=== PATIENT | female | born 1975 | race African-American/Black ===

== ENCOUNTER 2018-09-21 07:23 | Emergency (ER) | payer MEDICAID ==
[~2018-09-21] VITALS: Ht 168.9 cm; Wt 105.2 kg
[2018-09-21 07:30] VITALS: BP 144/91
[2018-09-21] MEDS ORDERED: AMLODIPINE BESY10 MG ORAL (07:32)
[2018-09-21] MEDS ORDERED: BENAZEPRIL HCL10 MG ORAL (07:32)
[2018-09-21] MEDS ORDERED: Augmentin 875mg Tab ONE (07:42)
[2018-09-21] MEDS ORDERED: AUGMENTIN 875-1 EAC1 ORAL (07:43)
[2018-09-21] MEDS ORDERED: TYLENOL EXTRA500 MG ORAL (07:43)
[2018-09-21] MEDS ORDERED: Augmentin 875mg Tab ORAL ONE (07:45)
[2018-09-21 07:47] VITALS: BP 144/91
--- NOTE | 2018-09-21 09:13 | Emergency Room Report ---
History of Present Illness General Chief Complaint: General Complaint Source: Patient Present Illness HPI 42-year-old female presents ED for evaluation. Patient complaining of swelling to the right side of face. Started this morning. Pain is throbbing, 5 out of 10, nonradiating. Denies fevers or chills. Denies any discharge. Denies any sore throat. Denies neck stiffness. States that she's had dental work performed in that area few months ago but none recently. No other aggravating relieving factors. Denies any other associated symptoms Allergies: Coded Allergies: No Known Allergies (Unverified , 09/21/18) Patient History Past Medical History: HTN Past Surgical History: none Pertinent Family History: none Social History: Denies: smoking, alcohol use, drug use Last Menstrual Period: 08/19/18 Now: No Immunizations: UTD Reviewed Nursing Documentation: PMH: Agreed; PSxH: Agreed Nursing Documentation-PMH Hx Hypertension: Yes Review of Systems All Other Systems: negative except mentioned in HPI Physical Exam Vital Signs Date Time Temp Pulse Resp B/P (MAP) Pulse Ox O2 Delivery O2 Flow Rate FiO2 09/21/18 07:28 97.9 80 18 144/91 97 Room Air Sp02 EP Interpretation: reviewed, normal General Appearance: no apparent distress, alert, GCS 15, non-toxic Head: normocephalic Eyes: bilateral eye normal inspection, bilateral eye PERRL ENT: hearing grossly normal, normal pharynx, no angioedema, normal voice, other - swelling/erythema surrounding tooth R upper jaw. no discharge. surrounding swelling Neck: full range of motion, supple, no meningismus, supple/symm/no masses Respiratory: normal inspection Cardiovascular #1: normal inspection Gastrointestinal: normal inspection Rectal: deferred Genitourinary: no CVA tenderness Musculoskeletal: normal inspection Neurologic: alert, oriented x3, responsive, motor strength/tone normal, sensory intact, speech normal Psychiatric: normal inspection Skin: normal inspection Lymphatic: normal inspection Medical Decision Making Diagnostic Impression: Primary Impression: Facial cellulitis Additional Impression: Tooth pain ER Course 42-year-old female presents ED complaining of tooth pain/facial swelling. Cracked tooth, dental abscess, cavity Patient placed on stretcher. After initial history, physical exam reveals a female in no distress. There is a extracted tooth but the surrounding gum shows swelling and erythema. No fluctuance or discharge. Swelling to the surrounding base. patient is afebrile, nontoxic appearing. Discussed findings with patient. Infection likely secondary to tooth. Given Augmentin here. We'll discharge with antibiotics, tylenol. We'll provide dental referrals Diagnosis- facial cellulitis, tooth pain Stable and discharged to home prescription for tylenol, augmentin. Instructed to see dentist as a walk-in this week. Return to ED if symptoms recur or worse Last Vital Signs Date Time Temp Pulse Resp B/P (MAP) Pulse Ox O2 Delivery O2 Flow Rate FiO2 09/21/18 07:47 97.9 80 18 144/91 97 Room Air Status: improved Disposition: HOME, SELF-CARE Condition: Stable Scripts Acetaminophen* (TYLENOL EXTRA STRENGTH*) 500 Mg Tablet 500 MG ORAL Q8H PRN for Prn Headache/Temp > 101, #30 TAB 0 Refills Prov: Juan Alvarado MD 09/21/18 Amoxicillin/Potassium Clav 875-125* (AUGMENTIN 875-125 TABLET*) 1 Each Tablet 1 TAB ORAL TWICE A DAY, #14 TAB Prov: Juan Alvarado MD 09/21/18 Referrals: [facility](age 2-12) - Orthodontic Clinic - Hours: Fri,Fri,, 8:15am and 1pm (new patient screening), Tues. 1pm. Emergency clinic Friday - Friday 8:30am and 1pm, Tues. 1pm. *Call to check if clinic is open; No appointment necessary for the first visit ( new patient screening), Arrive 15-30 minutes early as it is first come, first serve. [facility] INFO: New Patient Screening: Fri- 8am-1pm Fri- 9am -5pm and Fri 2pm-5pm Patient Instructions: Dental Abscess, Agdf-ne-Alob Juan Alvarado MD Sep 21, 2018 09:13
== END 2018-09-21 07:50 | disposition home or self-care (01) ==
LOC: EMR 07:35
DX: L03.211 Cellulitis of face (principal); K08.89 Other specified disorders of teeth and supporting structures; I10 Essential (primary) hypertension
CPT/HCPCS: 99283

== ENCOUNTER 2019-01-28 12:13 | Emergency (ER) | payer MEDICAID ==
[~2019-01-28] VITALS: Ht 167.6 cm; Wt 77.1 kg
[~2019-01-28 12:13] MED LIST: AMLODIPINE BESY10 MG ORAL; AUGMENTIN 875-1 EAC1 ORAL; BENAZEPRIL HCL10 MG ORAL; TYLENOL EXTRA500 MG ORAL
--- NOTE | 2019-01-28 14:01 | Emergency Room Report ---
History of Present Illness General Chief Complaint: General Complaint Source: Patient Present Illness HPI 33-year-old female presents to the emergency department complaining of bilateral ankle/feet swelling 2 weeks in addition to acute onset of 6 out of 10 in severity left calf pain. Patient denies trauma or fall. Patient denies any strenuous activities. Patient denies smoking history or use of estrogen. Patient does report she has been having prolonged periods of being sedentary. Denies recent travel. Patient denies fevers, chills, nausea, vomiting. She denies erythema, warmth or open wounds to the lower extremities.Denies CP, Palpitations, LOC, AMS, dizziness, Changes in Vision, Sensation, paresthesias, or a sudden severe headache. Pt. reports that swelling resolves with having legs raised, but returns after standing and walking around. Allergies: Coded Allergies: No Known Allergies (Unverified , 09/21/18) Patient History Past Medical History: see triage record Past Surgical History: none Pertinent Family History: none Last Menstrual Period: 12/2018 Reviewed Nursing Documentation: PMH: Agreed; PSxH: Agreed Nursing Documentation-PMH Past Medical History: No History, Except For Hx Hypertension: Yes Review of Systems All Other Systems: negative except mentioned in HPI Physical Exam Vital Signs Date Time Temp Pulse Resp B/P (MAP) Pulse Ox O2 Delivery O2 Flow Rate FiO2 01/28/19 12:36 98.6 88 14 95 Room Air Sp02 EP Interpretation: reviewed, normal General Appearance: no apparent distress, alert, GCS 15, non-toxic Head: normocephalic, atraumatic Eyes: bilateral eye normal inspection, bilateral eye PERRL ENT: hearing grossly normal, normal voice Neck: full range of motion Respiratory: chest non-tender, lungs clear, normal breath sounds, speaking full sentences Cardiovascular #1: regular rate, rhythm, other - very mild non-pitting edema to ankles bilaterally, Musculoskeletal: back normal, gait/station normal, normal range of motion, tender - medial left calf Neurologic: alert, oriented x3, responsive, motor strength/tone normal, sensory intact, normal gait, speech normal, grossly normal Psychiatric: judgement/insight normal Skin: normal color, no rash, warm/dry, well hydrated Lymphatic: no adenopathy Medical Decision Making PA Attestation Dr. Randall is my supervising Physician whom patient management has been discussed with. Diagnostic Impression: Primary Impression: Mild peripheral edema Additional Impression: Calf pain Qualified Codes: M79.662 - Pain in left lower leg ER Course 33-year-old female presents to the emergency department complaining of bilateral ankle/feet swelling 2 weeks in addition to acute onset of 6 out of 10 in severity left calf pain. Patient denies trauma or fall. Patient denies any strenuous activities. Patient denies smoking history or use of estrogen. Patient does report she has been having prolonged periods of being sedentary. Denies recent travel. Patient denies fevers, chills, nausea, vomiting. She denies erythema, warmth or open wounds to the lower extremities.Denies CP, Palpitations, LOC, AMS, dizziness, Changes in Vision, Sensation, paresthesias, or a sudden severe headache. Pt. reports that swelling resolves with having legs raised, but returns after standing and walking around. Ddx considered but are not limited to Cellulitis, DVT, varicose vein, PAD, Venous insufficiency Vital signs: are WNL, pt. is afebrile H&PE are most consistent with myalgia of left calf, and peripheral edema. ORDERS: US venous duplex: Negative ED INTERVENTIONS: None required at this time. DISCHARGE: At this time pt. is stable for d/c to home. Will provide printed patient care instructions, and any necessary prescriptions. Care plan and follow up instructions have been discussed with the patient prior to discharge. CT/MRI/US Diagnostic Results CT/MRI/US Diagnostic Results : Imaging Test Ordered: US venous duplex Impression Negative Last Vital Signs Date Time Temp Pulse Resp B/P (MAP) Pulse Ox O2 Delivery O2 Flow Rate FiO2 01/28/19 12:36 98.6 88 14 95 Room Air Status: improved Disposition: AGAINST MEDICAL ADVICE Condition: Unknown Scripts Compression Socks, Medium (FUTURO RESTORING) 1 Each Each EACH , #1 Prov: Aditi Milian 01/28/19 Referrals: NON PHYSICIAN (PCP) Patient Instructions: Peripheral Edema Additional Instructions: Take any previously prescribed medications as directed. Follow up with a Primary Care Provider in 3-5 days, even if your symptoms have resolved. --Please review list of primary care clinics, if you do not already have a primary care provider Return sooner to ED if new symptoms occur, or current symptoms become worse. - Please note that this Emergency Department Report was dictated using Dragon home care manager technology software, occasionally this can lead to erroneous entry secondary to interpretation by the dictation equipment. Aditi Milian January 28, 2019 14:01
[2019-01-28] MEDS ORDERED: FUTURO RESTORI1 EACH MC (14:06)
[2019-01-28 14:23] VITALS: BP 135/72
[2019-01-28 14:28] VITALS: BP 135/72
--- NOTE | 2019-01-28 14:28 | NUR ---
ER DISCHARGE NOTE:vascular study was done Patient is cleared to be discharged per ERMD, pt is aox4, on room air, with stable vital signs. pt was given dc and prescription instructions, pt was able to verbalize understanding, pt is able to ambulate with steady gait. pt took all belongings.
--- NOTE | 2019-01-28 14:43 | Diagnostic Imaging Report ---
Indication: Left lower extremity pain and swelling. Technique: Duplex Doppler imaging performed from the left common femoral vein to the popliteal vein. FINDINGS: Normal compressibility demonstrated from the common femoral vein to the popliteal vein. Respiratory phasicity and good augmentation demonstrated on waveform analysis. There is no evidence of thrombosis. IMPRESSION: No evidence of deep venous thrombosis within the left lower extremity.
== END 2019-01-28 14:29 | disposition home or self-care (01) ==
LOC: EMR 13:20
DX: M79.662 Pain in left lower leg (principal); R60.0 Localized edema; I10 Essential (primary) hypertension
CPT/HCPCS: 93971; 99284

== ENCOUNTER 2019-07-17 05:22 | Emergency (ER) | payer MEDICAID ==
[~2019-07-17] VITALS: Ht 162.6 cm; Wt 60.3 kg
[~2019-07-17 05:22] MED LIST changes: +FUTURO RESTORI1 EACH MC
[2019-07-17 05:35] VITALS: BP 125/64
--- NOTE | 2019-07-17 05:48 | Emergency Room Report ---
History of Present Illness General Chief Complaint: Pain Source: Patient, Medical Record Present Illness HPI 43-year-old female with history of high blood pressure. She presents with chief complaint of bilateral knee pain. This has been ongoing for over a month. Worse on the left side. She felt like it is giving out when she walked up steps. No trauma. No fever chills. There is some swelling. Pain is 7 out of 10. Worse with ambulating. When she was younger she did track and basketball. Allergies: Coded Allergies: No Known Allergies (Unverified , 09/21/18) Patient History Past Medical History: see triage record, old chart reviewed, HTN Past Surgical History: none Pertinent Family History: none Social History: Denies: smoking Now: No Immunizations: other Reviewed Nursing Documentation: PMH: Agreed; PSxH: Agreed Nursing Documentation-PMH Past Medical History: No History, Except For Hx Hypertension: Yes Review of Systems Eye: Denies: eye pain, blurred vision ENT: Denies: ear pain, nose congestion, throat swelling Respiratory: Denies: cough, shortness of breath Cardiovascular: Denies: chest pain, palpitations Gastrointestinal: Denies: abdominal pain, diarrhea, nausea, vomiting Musculoskeletal: Reports: joint pain; Denies: back pain Skin: Denies: rash Neurological: Denies: headache, numbness Endocrine: Denies: increased thirst, increased urine Hematologic/Lymphatic: Denies: easy bruising All Other Systems: negative except mentioned in HPI Physical Exam Vital Signs Date Time Temp Pulse Resp B/P (MAP) Pulse Ox O2 Delivery O2 Flow Rate FiO2 07/17/19 05:24 97.3 80 18 125/64 (84) 97 Room Air Vitals normal Sp02 EP Interpretation: reviewed, normal General Appearance: well appearing, no apparent distress, alert Head: normocephalic, atraumatic Eyes: bilateral eye PERRL, bilateral eye EOMI ENT: hearing grossly normal, normal pharynx Neck: full range of motion, supple, no meningismus Respiratory: chest non-tender, lungs clear, normal breath sounds Cardiovascular #1: regular rate, rhythm, no murmur Gastrointestinal: normal bowel sounds, non tender, no mass, no organomegaly, no bruit, non-distended Musculoskeletal: back normal, gait/station normal, normal range of motion, other - Rt Knee with minimal tenderness. Full range of motion. Left knee: Mild effusion. Some tenderness medially. Knee is stable. Psychiatric: mood/affect normal Procedures Splinting Splinting : Consent: Verbal Location: left knee Pre-Made Type: LOURDES wrap Pre-Proc Neuro Vasc Exam: normal Post-Proc Neuro Vasc Exam: normal Patient Tolerated: Well Complications: None Medical Decision Making Diagnostic Impression: Primary Impression: Knee effusion, left Additional Impression: Knee osteoarthritis Qualified Codes: M17.0 - Bilateral primary osteoarthritis of knee ER Course Patient presents with bilateral knee pain. Most likely osteoarthritic in nature. No fracture dislocation. No evidence of any septic joint. Will discharge home. Other X-Ray Diagnostic Results Other X-Ray Diagnostic Results #1: X-Ray ordered: Knee x-rays, left # of Views/Limited Vs Complete: 4 View Indication: Pain EP Interpretation: Yes Interpretation: no dislocation, no soft tissue swelling, no fractures Impression: No acute disease Electronically Signed by: Cm Loving MD Other X-Ray Diagnostic Results #2: X-Ray ordered: Right knee x-rays # of Views/Limited Vs Complete: 4 View Indication: Pain EP Interpretation: Yes Interpretation: no dislocation, no soft tissue swelling, no fractures Impression: No acute disease Electronically Signed by: Cm Loving MD Last Vital Signs Date Time Temp Pulse Resp B/P (MAP) Pulse Ox O2 Delivery O2 Flow Rate FiO2 07/17/19 05:24 97.3 80 18 125/64 (84) 97 Room Air Status: improved Disposition: HOME, SELF-CARE Condition: Stable Scripts Ibuprofen* (MOTRIN*) 600 Mg Tablet 600 MG ORAL THREE TIMES A DAY, #30 TAB 0 Refills Prov: Cm Loving MD 07/17/19 Referrals: NON PHYSICIAN (PCP) Additional Instructions: Follow-up with your doctor in 7 days. Return if symptoms worsen. Cm Loving MD Jul 17, 2019 05:48
--- NOTE | 2019-07-17 05:52 | NUR ---
ER DISCHARGE NOTE: Patient is cleared to be discharged per ERMD, pt is aox4, on room air, with stable vital signs. pt was given dc and prescription instructions, pt was able to verbalize understanding, pt id band removed without complications. pt is able to ambulate with steady gait. pt took all belongings.pt is with mother, given crutches and return demonstrates proper use and verbalizes safety measures.
[2019-07-17 06:00] VITALS: BP 125/64
--- NOTE | 2019-07-17 06:00 | NUR ---
ER DISCHARGE NOTE: Patient is cleared to be discharged per ERMD, pt is aox4, on room air, with stable vital signs. pt was given dc and prescription instructions, pt was able to verbalize understanding, pt id band removed. pt is able to ambulate with steady gait. pt took all belongings.
[2019-07-17] MEDS ORDERED: IBUPROFEN600 MG ORAL (06:01)
--- NOTE | 2019-07-17 06:31 | Diagnostic Imaging Report ---
3 VIEW RIGHT KNEE: HISTORY: 43-year-old female with pain 1 month. COMPARISON: 3 view right knee 3 2010. FINDINGS: No acute fracture, subluxation, or dislocation is identified. There is a possible small knee joint effusion, similar to the prior exam. Small bone spurs noted involving the patella at the quadriceps muscle tendon insertion, new compared to the prior exam. There is evidence of mild DJD as well, also mildly increased compared to the prior exam. Chronic small ossified nodule of the proximal medial collateral ligament is noted, as before. IMPRESSION: 1. No acute osseous abnormality identified. 2. Probable small knee joint effusion. 3. Mild 3 compartment DJD, increased compared to the prior exam.
--- NOTE | 2019-07-17 06:34 | Diagnostic Imaging Report ---
3 VIEW LEFT KNEE: HISTORY: 43-year-old female with pain 1 month. COMPARISON: 3 view right knee same date. FINDINGS: No acute fracture, subluxation, or dislocation is identified. There is a probable small knee joint effusion, similar to the right. A small bone spur is noted involving the patella at the quadriceps muscle tendon insertion, similar to the right. There is evidence of mild DJD, similar to the right. Bone density appears normal. IMPRESSION: 1. No acute osseous abnormality identified. 2. Probable small knee joint effusion, similar to the right. 3. Mild 3 compartment DJD, similar to the right.
== END 2019-07-17 06:00 | disposition home or self-care (01) ==
LOC: EMR 05:39
DX: M17.0 Bilateral primary osteoarthritis of knee (principal); M25.462 Effusion, left knee; I10 Essential (primary) hypertension
CPT/HCPCS: 73562; Z7502; 29505; 99284

== ENCOUNTER 2020-08-11 06:11 | Emergency (ER) | payer MEDICAID ==
[~2020-08-11] VITALS: Ht 167.6 cm; Wt 105.2 kg
[~2020-08-11 06:11] MED LIST changes: +IBUPROFEN600 MG ORAL
--- NOTE | 2020-08-11 06:25 | NUR ---
ED Nurse Note: Patient walked in from home c/o right toe pain and swelling, pt reports she stubbed her toe on a wooden chair 5 days ago, swelling and pain worsened. Patient reports she hasn't had it checked and reports only taking OTC pain medications at home. Patient aao x 4 and ambulatory. Patient reports aching pain /. No acute distress noted.
[2020-08-11] MEDS ORDERED: Acetaminophen 500mg (ES) tab ORAL ONE (06:30)
--- NOTE | 2020-08-11 06:30 | Emergency Room Report ---
History of Present Illness General Chief Complaint: Lower Extremity Injury Source: Patient Present Illness HPI Patient is a 44-year-old female presents for right-sided fourth toe pain. Reports having injury proximally 1 week ago. Reports having persistent pain since then. States she had accidentally hit her toe on a piece of furniture. Noticed persistent swelling. Had been using ice packs without any improvement. Prior history of hypertension. Denies any other locations of pain currently. Patient had been working as a grocery cashier. Allergies: Coded Allergies: No Known Allergies (Unverified , 09/21/18) COVID-19 Screening Contact w/high risk pt: No Experienced COVID-19 symptoms?: No COVID-19 Testing performed MIXER BLENDER: No Patient History Past Medical History: see triage record Last Menstrual Period: 07/31/20 Now: No : 0 Para: 0 Reviewed Nursing Documentation: PMH: Agreed; PSxH: Agreed Nursing Documentation-PMH Hx Hypertension: Yes Review of Systems All Other Systems: negative except mentioned in HPI Physical Exam Vital Signs Date Time Temp Pulse Resp B/P (MAP) Pulse Ox O2 Delivery O2 Flow Rate FiO2 08/11/20 06:18 96.6 85 20 167/99 (121) 95 Room Air General Appearance: well appearing, no apparent distress, alert, GCS 15, non- toxic, obese Head: normocephalic, atraumatic ENT: hearing grossly normal, normal voice Neck: full range of motion, supple Respiratory: normal inspection, no respiratory distress, speaking full sentences Musculoskeletal: other - Swelling to the right fourth toe, no discoloration, good perfusion Neurologic: normal gait Psychiatric: mood/affect normal Skin: no rash Medical Decision Making Diagnostic Impression: Primary Impression: Fracture of fourth toe, left, closed ER Course Patient presented for right fourth toe pain. Differential diagnosis include was not limited to contusion, sprain, fracture, dislocation among others. X-ray imaging was ordered due to patient's complaint of pain.Imaging showed oblique fourth toe proximal phalanx fracture. Patient given prescription for pain medications. She is advised to follow-up with her physician for referral to orthopedic physician or podiatry. This medical record is generated with [employer] promotions team leader software. There may be some promotions team leader discrepancies related to use of this software Last Vital Signs Date Time Temp Pulse Resp B/P (MAP) Pulse Ox O2 Delivery O2 Flow Rate FiO2 08/11/20 06:18 96.6 85 20 167/99 (136) 95 Room Air Status: improved Disposition: HOME, SELF-CARE Condition: Stable Edward Randall MD Aug 11, 2020 06:30
[2020-08-11] MEDS ORDERED: VOLTAREN100 G1 TP (06:57)
[2020-08-11] MEDS ORDERED: ACETAMINOPHEN500 M3 ORAL (06:57)
[2020-08-11] MEDS ORDERED: IBUPROFEN400 M1 PO (06:57)
[2020-08-11 08:00] VITALS: BP 150/80
--- NOTE | 2020-08-11 14:34 | NUR ---
POST OP SHOE APPLIED CRUTCHES PROVIDED INSTRUCTION GIVEN HOW TO WALK WITH CRUTCHES DISCHARGED HOME WITH INSTRUCTION AND RX FOLLOW UP WITH JESSEE
--- NOTE | 2020-08-11 17:17 | Diagnostic Imaging Report ---
Indication: Right foot pain Technique: 3 views right foot Comparison: none Findings: There is an oblique fracture of the fourth proximal phalanx. This is minimally displaced. There is an old healed fracture deformity of the fifth metatarsal. Impression: Positive for fourth proximal phalangeal fracture
== END 2020-08-11 08:00 | disposition home or self-care (01) ==
LOC: EMR 06:29
DX: S92.511A Displaced fracture of proximal phalanx of right lesser toe(s), initial encounter for closed fracture (principal); W22.09XA Striking against other stationary object, initial encounter; Y92.9 Unspecified place or not applicable; I10 Essential (primary) hypertension; E66.9 Obesity, unspecified; Z68.37 Body mass index [BMI] 37.0-37.9, adult
CPT/HCPCS: 73630; Z7502; 99283